=== PATIENT | male | born 1995 | race Caucasian/White ===

== ENCOUNTER 2021-02-07 20:05 | Emergency (ER) | payer OTHER ==
[2021-02-07 20:11] VITALS: BP 121/78; PULSE 100; TEMP 98.2; BMI 30.7
[2021-02-07] MEDS ORDERED: LIDOCAINE PATCH REMOVAL MC SCH (22:00)
[2021-02-07] MEDS ORDERED: LIDOCAINE 5% TOPICAL PATCH TP ONE (22:17)
[2021-02-07] MEDS ORDERED: LIDOCAINE 5% TOPICAL PATCH ONE (22:22)
== END 2021-02-07 22:36 | disposition home or self-care (01) ==
LOC: JERFT 20:05
DX: S46.011A Strain of muscle(s) and tendon(s) of the rotator cuff of right shoulder, initial encounter (principal); Y93.89 Activity, other specified; Y92.89 Other specified places as the place of occurrence of the external cause
CPT/HCPCS: 73030-TC-RT-FY; 99284-25

== ENCOUNTER 2022-05-21 16:56 | Emergency (ER) | payer OTHER ==
[2022-05-21 17:14] VITALS: BP 127/67; PULSE 98; RESP 18; TEMP 98.8; BMI 34.2
[2022-05-21] MEDS ORDERED: IBUPROFEN 600 MG TABLET (FP) PO ONE (17:50)
== END 2022-05-21 18:04 | disposition home or self-care (01) ==
LOC: JERFT 16:56
DX: S29.012A Strain of muscle and tendon of back wall of thorax, initial encounter (principal); X50.0XXA Overexertion from strenuous movement or load, initial encounter; Y99.0 Civilian activity done for income or pay
CPT/HCPCS: 99282-25

== ENCOUNTER 2023-03-04 13:22 | Emergency (ER) | payer OTHER ==
[2023-03-04 13:31] VITALS: BP 150/75; PULSE 100; RESP 20; TEMP 98; BMI 34.2
[2023-03-04] MEDS ORDERED: ACETAMINOPHEN 500 MG TABLET (FP) PO ONE (13:59)
[2023-03-04] MEDS ORDERED: IBUPROFEN 400 MG TABLET (FP) PO ONE ×2 (13:59→14:00)
[2023-03-04] MEDS ORDERED: ACETAMINOPHEN 500 MG TABLET (FP) ONE (14:01)
== END 2023-03-04 17:01 | disposition home or self-care (01) ==
LOC: JERFT 13:22
DX: M25.511 Pain in right shoulder (principal); X50.0XXA Overexertion from strenuous movement or load, initial encounter; Y93.B3 Activity, free weights
CPT/HCPCS: 73030-TC-RT-FY; 99283-25

== ENCOUNTER 2024-03-23 07:51 | Emergency (ER) | payer OTHER ==
[2024-03-23 08:05] VITALS: BP 118/57; PULSE 76; RESP 16; TEMP 98.1; BMI 34.8
[2024-03-23] MEDS ORDERED: KETOROLAC TROMETHAMINE 30 MG/1 ML VIAL ONE (09:47)
[2024-03-23] MEDS ORDERED: ACETAMINOPHEN 325 MG TABLET (FP) ONE (09:47)
[2024-03-23] MEDS: ACETAMINOPHEN 325 MG TABLET (FP) PO ONE (09:53)
[2024-03-23] MEDS: KETOROLAC TROMETHAMINE 30 MG/1 ML VIAL IM ONE (09:54)
== END 2024-03-23 10:31 | disposition home or self-care (01) ==
LOC: JER 07:51
PROC: 3E0133Z Introduction of Anti-inflammatory into Subcutaneous Tissue, Percutaneous Approach (ICD-10-PCS; principal; 2024-03-23)
DX: M25.511 Pain in right shoulder (principal); M25.512 Pain in left shoulder
CPT/HCPCS: 99284-25

== ENCOUNTER 2024-05-11 15:18 | Emergency (ER) | payer OTHER ==
[2024-05-11 15:31] VITALS: BP 119/74; PULSE 79; RESP 18; TEMP 98.4; BMI 33.2
[2024-05-11] MEDS ORDERED: IBUPROFEN 400 MG TABLET (FP) PO ONE (17:17)
[2024-05-11] MEDS ORDERED: METHOCARBAMOL 500 MG TABLET ONE (17:17)
[2024-05-11] MEDS ORDERED: ACETAMINOPHEN 500 MG TABLET (FP) ONE (17:17)
[2024-05-11] MEDS: IBUPROFEN 400 MG TABLET (FP) PO ONE (17:21)
[2024-05-11] MEDS: METHOCARBAMOL 500 MG TABLET PO ONE (17:21)
[2024-05-11] MEDS: ACETAMINOPHEN 500 MG TABLET (FP) PO ONE (17:22)
== END 2024-05-11 18:01 | disposition home or self-care (01) ==
LOC: JERFT 15:18
DX: M79.601 Pain in right arm (principal); W10.8XXA Fall (on) (from) other stairs and steps, initial encounter
CPT/HCPCS: 73030-TC-RT-FY; 73060-TC-RT-FY; 73070-TC-RT-FY; 73090-TC-RT-FY; 73110-TC-RT-FY; 73130-TC-RT-FY; 99283-25